=== PATIENT | female | born 1945 | race Caucasian/White ===

== ENCOUNTER 2016-12-29 21:55 | Emergency (ER) | payer MEDICARE, BC ==
[2016-12-29 22:12] VITALS: TEMP 97.2
[2016-12-29] MEDS ORDERED: DIAZEPAM 5MG/ML SOL IV ONE (22:24)
[2016-12-29] MEDS ORDERED: LABETALOL HYDROCHLORIDE 5 MG/ML SOL IV ONE ×2 (22:24→22:29)
[2016-12-29] MEDS ORDERED: ACETAMINOPHEN 500 MG 500 MG TAB PO ONE (22:26)
[2016-12-29] MEDS ORDERED: DIAZEPAM 5MG/ML SOL ONE (22:29)
[2016-12-29] MEDS ORDERED: ACETAMINOPHEN 500 MG 500 MG TAB ONE (22:29)
[2016-12-29 23:03] LABS: BASOPHILS % (AUTO) 1 % (0-3); EOSINOPHILS % (AUTO) 4 % (0-9); HEMATOCRIT 34 % (35-47); MEAN CORPUSCULAR HGB CONC 34.7 gm/dl (32.0-36.0); MEAN CORPUSCULAR VOLUME 90 fL (81-99); MONOCYTES % (AUTO) 6.4 % (0-12); NEUTROPHILS % (AUTO) 54.4 % (37-80)
[2016-12-29 23:21] LABS: CALCIUM 8.3 mg/dl (8.5-10.1); POTASSIUM 3.6 mMol/L (3.5-5.1)
[2016-12-29] MEDS ORDERED: ZOLPIDEM TARTRATE 5 MG TAB PO PRN (23:53)
[2016-12-29] MEDS ORDERED: ZOLPIDEM TARTRATE 5 MG TAB ONE (23:55)
[2016-12-30 00:14] VITALS: BP 141/75; PULSE 67; RESP 12; O2SAT 98
== END 2016-12-30 00:10 | disposition home or self-care (01) | DRG 305 ==
LOC: ED 21:55
DX: I16.9 Hypertensive crisis, unspecified (principal); F43.9 Reaction to severe stress, unspecified; G47.00 Insomnia, unspecified
CPT/HCPCS: 36415; 80048; 84484; 85025; 93005; 96374; 96375; 99285; J3360

== ENCOUNTER 2017-09-27 10:11 | Outpatient (CLI) | payer MEDICARE, BC ==
[2016-12-30 00:14] VITALS: O2SAT 98
== END 2017-09-27 10:12 | disposition home or self-care (01) | DRG 556 ==
LOC: CONVCARE 10:11
PROVIDERS: ATTEND Orthopaedic Surgery
DX: M25.552 Pain in left hip (principal)